=== PATIENT | male | born 1990 | race Two or more races ===

== ENCOUNTER 2018-10-04 08:47 | Emergency (ER) | payer OTHER ==
[2018-10-04] MEDS ORDERED: IBUPROFEN 600 MG TABLET PO ONE (08:58)
--- NOTE | 2018-10-04 09:05 | Emergency Department Record ---
History of Present Illness - General Chief complaint: Extremity Problem Stated complaint: FINGER INJURY/WC Time Seen by Provider: 10/04/18 08:52 Source: Patient Mode of Arrival: Ambulatory Limitations: No limitations - History of Present Illness Initial comments: The patient is here due to a crush injury to his 2nd - 4th fingers at work about a half hour ago. The 4th finger is the most painful. He denies any other injury. MD Complaint: Extremity pain Onset/Timin -: Minutes(s) Location: Left, Hand History of Same: No Severity scale (1-10): 7 Quality: Other Consistency: Constant Improves with: Immobilization Worsens with: Exertion Associated Symptoms: Denies other symptoms - Related Data Home Medications Medication Instructions Recorded Confirmed Last Taken No Home Med [NO HOME MEDS] 10/04/18 10/04/18 Unknown Allergies Allergy/AdvReac Type Severity Reaction Status Date / Time No Known Drug Allergies Allergy Verified 10/04/18 08:50 Travel Screening - Travel/Exposure Within Last 30 Days Have you traveled within the last 30 days?: No - Travel/Exposure Within Last Year Have you traveled outside the [place] in the last year?: No - Additonal Travel Details Have you been exposed to anyone with a communicable illness?: No - Travel Symptoms Symptom Screening: None Review of Systems Constitutional: Denies: Chills, Fever Past Medical History - SOCIAL HISTORY Smoking Status: Current every day smoker Alcohol Use: Occasional Drug Use: Occasional Drug Use Detail:: Marijuana - RESPIRATORY Hx Respiratory Disorders: No - CARDIOVASCULAR Hx Cardio Disorders: No - NEURO Hx Neuro Disorders: No - GI Hx GI Disorders: No - Hx Genitourinary Disorders: No - ENDOCRINE Hx Endocrine Disorders: No - MUSCULOSKELETAL Hx Musculoskeletal Disorders: No - PSYCH Hx Psych Problems: No - HEMATOLOGY/ONCOLOGY Hx Hematology/Oncology Disorders: No Family Medical History Any Significant Family History?: Yes Hx Cancer: Grandparents Hx Dementia: Mother, Brother/Sister Hx Diabetes: Grandparents Hx Heart Disease: Father Hx Resp Disorders: Mother, Brother/Sister Physical Exam - General General Appearance: Alert, Cooperative, No acute distress - Head Head exam: Atraumatic, Normocephalic - Eye Eye exam: Normal appearance - Extremities Extremities exam: Full ROM (There is pain with ROM to the finger tips.), Normal capillary refill, Tenderness (There is significant tenderness to palpation over the 2nd-4th finger tips and the 4th is the most painful.). negative: Normal inspection (There is bruising to the L 4th finger pad and minimally the 3rd. There is a small subungual hematoma over the proximal 4th fingernail.) Image of Hand: 1 - Area of pain and trauma. 2 - Area of pain and tenderness. Course Vital Signs 10/04/18 08:51 Temperature 97.8 F Pulse Rate 87 Respiratory 18 Rate Blood Pressure 164/98 Pulse Ox 99 - Reevaluation(s) Reevaluation #1: I did discuss the finger tuft fracture with the patient and did discuss the need for F/U with Ortho. 10/04/18 10:03 Medical Decision Making - Data Complexity MDM Data: X-Ray Ordered and/or Reviewed - Radiology Data Radiology results: Report reviewed (L hand: L 4th finger tuft rx nondisplaced.) Disposition Disposition: Discharge Clinical Impression: Finger fracture, left Qualifiers: Encounter type: initial encounter Finger: ring finger Fracture type: closed P halanx: distal Fracture alignment: nondisplaced Qualified Code(s): S62.665A - Nondisplaced fracture of distal phalanx of left ring finger, initial encounter for closed fracture Disposition: Home, Self-Care Condition: (2) Stable Instructions: Finger Fracture (ED) Additional Instructions: Ice and elevate the finger when possible and keep splinted. Take Tylenol or Motrin for pain and do not use that hand at work until cleared by hand surgery. Please see an Orthopedic doctor for recheck within a week. If able to please see Dr. [place] in [place]. Return to the ER for any worsening issues. Referrals: EMMA WELDON M.D. [MEDICAL DOCTOR] - Forms: Patient Portal Access Time of Disposition: 10:02 Quality - Quality Measures Quality Measures: N/A - Blood Pressure Screening View Details: Yes Does Patient Have Any of the Following: No Blood Pressure Classification: Hypertensive Reading Systolic Measurement: 164 Diastolic Measurement: 98 Screening for High Blood Pressure: < First Hypertensive BP, F/U Documented > [G8950] First Hypertensive Follow-up Interventions: Referral to alternative/primary care provider.
[2018-10-04 10:36] LABS: AMPHETAMINE SCREEN URINE NOT DETECTED; BARBITURATE SCREEN URINE NOT DETECTED; BENZODIAZEPINE SCREEN URINE NOT DETECTED; COCAINE SCREEN URINE NOT DETECTED; METHADONE SCREEN URINE NOT DETECTED; METHAMPHETAMINE SCREEN NOT DETECTED; OPIATE SCREEN URINE NOT DETECTED; OXYCODONE SCREEN URINE NOT DETECTED; PHENCYCLIDINE SCREEN URINE NOT DETECTED; PROPOXYPHENE SCREEN URINE NOT DETECTED; THC SCREEN URINE NOT DETECTED; TRICYCLIC ANTIDEPRESSANT SCRN NOT DETECTED
--- NOTE | 2018-10-05 20:59 | RADIOLOGY REPORT ---
EXAM: HAND, LEFT 3 VIEWS HISTORY: CRUSHED HAND BETWEEN STEEL PLATES JUST PRIOR TO ARRIVAL. PAIN WORSE IN FOURTH DIGIT. TECHNIQUE: Three views of the left hand are obtained. COMPARISON: None. ENCOUNTER: Initial. FINDINGS: There is normal bone mineralization. There is a comminuted fracture of the tuft of the fourth distal phalanx. There is only minimal distraction of the fracture fragments. No other acute osseous fracture seen, nor is there dislocation. The articular relations are maintained. There is soft tissue swelling of the distal aspect of the fourth digit. IMPRESSION: COMMINUTED FRACTURE OF THE TUFT OF THE FOURTH DISTAL PHALANX WITHOUT GROSS DISPLACEMENT. THERE IS ASSOCIATED SOFT TISSUE SWELLING. JOB NUMBER: [id number] [facility]
== END 2018-10-04 10:17 | disposition home or self-care (01) ==
LOC: ER 08:47
DX: S62.665A Nondisplaced fracture of distal phalanx of left ring finger, initial encounter for closed fracture (principal); W20.8XXA Other cause of strike by thrown, projected or falling object, initial encounter; Y92.63 Factory as the place of occurrence of the external cause; Y99.0 Civilian activity done for income or pay; F17.210 Nicotine dependence, cigarettes, uncomplicated
CPT/HCPCS: 80305; 99283